=== PATIENT | male | born 1965 | race Caucasian/White ===

== ENCOUNTER 2023-10-12 13:54 | Inpatient (IN) | payer OTHER, MEDICAID ==
[~2023-10-12] VITALS: Ht 175.3 cm; Wt 92.5 kg
[2023-10-12 18:34] VITALS: BP 133/82; PULSE 100; RESP 20; TEMP 98.4; O2SAT 98
[2023-10-12] MEDS ORDERED: METO-289 PO (19:18)
[2023-10-12] MEDS ORDERED: METO25TA93 PO (19:18)
[2023-10-12] MEDS ORDERED: SEVE800T8 PO (19:18)
[2023-10-12] MEDS ORDERED: INSU100I70 SC (19:18)
[2023-10-12] MEDS ORDERED: FURO40TA4 PO (19:18)
[2023-10-12] MEDS ORDERED: ROPI0.5T26 PO (19:18)
[2023-10-12] MEDS ORDERED: NITR50CA52 PO (19:18)
[2023-10-12 20:00] VITALS: PULSE 110; PULSE 129; RESP 20; O2SAT 95
[2023-10-12 21:00] VITALS: BP 136/93; TEMP 97.9; O2SAT 94
[2023-10-12] MEDS ORDERED: ONDANSETRON HCL 4 MG/2 ML VIAL IV PRN (23:15)
[2023-10-12] MEDS ORDERED: ACETAMINOPHEN 325 MG TAB PO PRN (23:15)
[2023-10-12] MEDS ORDERED: MORPHINE SULFATE INJ 2 MG/ml SYRG IV PRN (23:15)
[2023-10-12] MEDS ORDERED: NITROGLYCERIN 0.4 MG SL TAB SL PRN (23:15)
[2023-10-12] MEDS ORDERED: DOCUSATE SOD 100 MG CAP PO PRN (23:15)
[2023-10-12] MEDS: MORPHINE SULFATE INJ 2 MG/ml SYRG IV PRN (23:35)
[2023-10-12 23:52] VITALS: PULSE 85; RESP 20; O2SAT 93
[2023-10-12] MEDS: IPRATROPIUM BROM 0.5 MG/2.5ML INH SOL NEB PRN (23:52)
[2023-10-12] MEDS: ALBUTEROL SULF 2.5 MG/0.5ML(0.5%) NEB SOLN NEB PRN (23:52)
[2023-10-13] VITALS (13 sets, daily range): BP systolic 115–150; BP diastolic 58–98; PULSE 82–110; RESP 16–22; TEMP 97.1–98.7; O2SAT 93–100
[2023-10-13 00:57] LABS: Basophils # (auto) 0.1 10 ^3/uL (0-0.2); Basophils % (auto) 0.7 % (0.0-2.0); Eosinophils # (auto) 0.2 10 ^3/uL (0-0.8); Eosinophils % (auto) 1.9 % (0.0-7.0); Hemoglobin 10.7 g/dL (13.5-17.5); Lymphocytes # (auto) 1.9 10 ^3/uL (0.4-5.4); Lymphocytes % (auto) 17.9 % (10.0-50.0); Mean Corpuscular Hgb Conc. 31.4 g/dL (32.0-36.0); Monocytes # (auto) 0.8 10 ^3/uL (0-1.3); Monocytes % (auto) 7.5 % (0.0-12.0); Neutrophils # (auto) 7.6 10 ^3/uL (1.6-8.6); Nucleated Red Blood Cells % 0.1 %; Red Blood Cells 3.82 10^6/uL (4.5-5.90); Red Cell Distribution Width 19.8 % (11.8-14.3); White Blood Cell 10.5 10^3/uL (4.4-10.8)
[2023-10-13 01:11] LABS: INR 1.26 (0.9-1.15); Partial Thromboplastin Time 29.6 SEC (24.5-34.5); Prothrombin Time 13.1 sec (9.3-11.8)
[2023-10-13 02:10] LABS: Chloride 103 mmol/L (98-107); Potassium 4.4 mmol/L (3.5-5.1); Sodium 136 mmol/L (136-145)
[2023-10-13 02:11] LABS: Anion Gap 14 (5-15); Calcium 7.7 mg/dL (8.7-10.4); Carbon Dioxide 19 mmol/L (20-30)
[2023-10-13 02:16] LABS: BUN/Creatinine Ratio 9.2 (10.0-20.0); Blood Urea Nitrogen 38 mg/dL (9-23); Glucose 307 mg/dL (74-106)
[2023-10-13] MEDS: HEPARIN SODIUM (PORCINE) 5000 UNITS/ML 1ML VIAL IV ONE ×2 (02:23→12:34)
[2023-10-13] MEDS: HEPARIN DRIP/D5W 100UNITS/ML 250 ML IV SCH ×2 (02:32→12:35)
[2023-10-13] MEDS: HYDROcodone-ACET 5/325MG TAB PO PRN (05:22)
[2023-10-13] MEDS: LORazepam 0.5 MG TAB PO PRN (05:23)
[2023-10-13 09:35] LABS: Basophils # (auto) 0.1 10 ^3/uL (0-0.2); Basophils % (auto) 0.7 % (0.0-2.0); Eosinophils # (auto) 0.2 10 ^3/uL (0-0.8); Eosinophils % (auto) 1.8 % (0.0-7.0); Hematocrit 34.9 % (41.0-53.0); Hemoglobin 11.2 g/dL (13.5-17.5); Lymphocytes # (auto) 2.6 10 ^3/uL (0.4-5.4); Lymphocytes % (auto) 26.8 % (10.0-50.0); Mean Corpuscular Hemoglobin 28.4 pg (28.0-32.0); Mean Corpuscular Volume 88.7 fL (80.0-100.0); Monocytes # (auto) 0.7 10 ^3/uL (0-1.3); Monocytes % (auto) 7.6 % (0.0-12.0); Neutrophils # (auto) 6.2 10 ^3/uL (1.6-8.6); Neutrophils % (auto) 63.1 % (37.0-80.0); Red Blood Cells 3.93 10^6/uL (4.5-5.90); Red Cell Distribution Width 19.6 % (11.8-14.3); White Blood Cell 9.8 10^3/uL (4.4-10.8)
[2023-10-13 09:49] LABS: Chloride 103 mmol/L (98-107); Potassium 4.4 mmol/L (3.5-5.1); Sodium 134 mmol/L (136-145)
[2023-10-13 09:50] LABS: Anion Gap 6 (5-15); Calcium 7.4 mg/dL (8.5-10.1); Carbon Dioxide 25 mmol/L (20-30)
[2023-10-13 09:55] LABS: BUN/Creatinine Ratio 11.3 (10.0-20.0); Blood Urea Nitrogen 47 mg/dL (9-23); Glucose 299 mg/dL (74-106)
[2023-10-13] MEDS: ASPirin 81 mg TAB PO SCH (10:01)
[2023-10-13 11:35] LABS: INR 1.19 (0.9-1.15); Partial Thromboplastin Time 32.2 SEC (24.5-34.5); Prothrombin Time 12.5 sec (9.3-11.8)
[2023-10-13] MEDS ORDERED: SODIUM CHL 0.9% 1000 ML BAG XX ONE (14:00)
[2023-10-13 19:54] LABS: INR 1.16 (0.9-1.15); Partial Thromboplastin Time 49.7 SEC (24.5-34.5); Prothrombin Time 12.2 sec (9.3-11.8)
[2023-10-13] MEDS: ATORVASTATIN 20 MG TAB PO SCH (22:35)
[2023-10-14] VITALS (11 sets, daily range): BP systolic 117–150; BP diastolic 87–100; PULSE 83–112; RESP 14–20; TEMP 97.5–98.9; O2SAT 96–100
[2023-10-14 03:29] LABS: INR 1.11 (0.9-1.15); Partial Thromboplastin Time 38.6 SEC (24.5-34.5); Prothrombin Time 11.7 sec (9.3-11.8)
[2023-10-14 19:35] LABS: Basophils # (auto) 0.1 10 ^3/uL (0-0.2); Basophils % (auto) 0.8 % (0.0-2.0); Eosinophils # (auto) 0.2 10 ^3/uL (0-0.8); Eosinophils % (auto) 2.1 % (0.0-7.0); Hematocrit 35.8 % (41.0-53.0); Hemoglobin 11.3 g/dL (13.5-17.5); Lymphocytes # (auto) 2.7 10 ^3/uL (0.4-5.4); Lymphocytes % (auto) 27.1 % (10.0-50.0); Mean Corpuscular Hemoglobin 28.7 pg (28.0-32.0); Mean Corpuscular Hgb Conc. 31.7 g/dL (32.0-36.0); Mean Corpuscular Volume 90.5 fL (80.0-100.0); Monocytes # (auto) 0.5 10 ^3/uL (0-1.3); Monocytes % (auto) 5.1 % (0.0-12.0); Neutrophils # (auto) 6.5 10 ^3/uL (1.6-8.6); Neutrophils % (auto) 64.9 % (37.0-80.0); Nucleated Red Blood Cells % 0.1 %; Red Blood Cells 3.96 10^6/uL (4.5-5.90)
[2023-10-14 19:36] LABS: Red Cell Distribution Width 20.5 % (11.8-14.3)
[2023-10-14 19:46] LABS: Chloride 99 mmol/L (98-107); Potassium 4.4 mmol/L (3.5-5.1); Sodium 132 mmol/L (136-145)
[2023-10-14 19:47] LABS: Anion Gap 6 (5-15); Carbon Dioxide 27 mmol/L (20-30)
[2023-10-14 19:48] LABS: Calcium 7.5 mg/dL (8.5-10.1)
[2023-10-14 19:52] LABS: Glucose 359 mg/dL (74-106)
[2023-10-14 19:53] LABS: BUN/Creatinine Ratio 10.3 (10.0-20.0); Blood Urea Nitrogen 43 mg/dL (9-23)
[2023-10-14 20:06] LABS: INR 1.08 (0.9-1.15); Partial Thromboplastin Time 36.5 SEC (24.5-34.5); Prothrombin Time 11.4 sec (9.3-11.8)
[2023-10-14] MEDS: HEPARIN DRIP/D5W 100UNITS/ML 250 ML IV SCH (21:14)
== END 2023-10-15 00:15 | disposition left against medical advice (07) | DRG 280 ==
LOC: TELE-CENTR 18:29
PROVIDERS: ADMIT Internal Medicine; ATTEND Internal Medicine
PROC: 5A1D70Z Performance of Urinary Filtration, Intermittent, Less than 6 Hours Per Day (ICD-10-PCS; principal; 2023-10-13)
DX: I21.4 Non-ST elevation (NSTEMI) myocardial infarction (principal); I50.23 Acute on chronic systolic (congestive) heart failure; N18.6 End stage renal disease; J96.01 Acute respiratory failure with hypoxia; I13.2 Hypertensive heart and chronic kidney disease with heart failure and with stage 5 chronic kidney disease, or end stage renal disease; E11.22 Type 2 diabetes mellitus with diabetic chronic kidney disease; E66.9 Obesity, unspecified; J44.9 Chronic obstructive pulmonary disease, unspecified; Z53.29 Procedure and treatment not carried out because of patient's decision for other reasons; Z99.2 Dependence on renal dialysis; Z82.0 Family history of epilepsy and other diseases of the nervous system; Z82.5 Family history of asthma and other chronic lower respiratory diseases; Z82.61 Family history of arthritis; Z87.891 Personal history of nicotine dependence; Z68.30 Body mass index [BMI] 30.0-30.9, adult
CPT/HCPCS: 36415; 80048; 84484; 85025; 85610; 85730; 90935; 93306; 94640; G0378

== ENCOUNTER 2023-11-07 08:48 | Inpatient (IN) | payer OTHER, MEDICAID ==
[~2023-11-07] VITALS: Ht 177.8 cm; Wt 92.5 kg
[~2023-11-07 08:48] MED LIST: CLIN150C18 PO; FURO40TA4 PO; INSU100I70 SC; METO-289 PO; METO25TA93 PO; NITR50CA52 PO; ROPI0.5T26 PO; SEVE800T8 PO
[2023-11-07 09:35] VITALS: PULSE 114; RESP 21; O2SAT 99
[2023-11-07 09:46] LABS: Basophils # (auto) 0.2 10 ^3/uL (0-0.2); Basophils % (auto) 1.2 % (0.0-2.0); Eosinophils # (auto) 0 10 ^3/uL (0-0.8); Eosinophils % (auto) 0.3 % (0.0-7.0); Hematocrit 43.6 % (41.0-53.0); Hemoglobin 13.8 g/dL (13.5-17.5); Lymphocytes # (auto) 2.9 10 ^3/uL (0.4-5.4); Lymphocytes % (auto) 23.8 % (10.0-50.0); Mean Corpuscular Hemoglobin 28.5 pg (28.0-32.0); Mean Corpuscular Hgb Conc. 31.6 g/dL (32.0-36.0); Mean Corpuscular Volume 89.9 fL (80.0-100.0); Monocytes # (auto) 0.7 10 ^3/uL (0-1.3); Monocytes % (auto) 5.8 % (0.0-12.0); Neutrophils # (auto) 8.4 10 ^3/uL (1.6-8.6); Neutrophils % (auto) 68.9 % (37.0-80.0); Nucleated Red Blood Cells % 0.2 %; Red Blood Cells 4.85 10^6/uL (4.5-5.90); Red Cell Distribution Width 20.5 % (11.8-14.3); White Blood Cell 12.1 10^3/uL (4.4-10.8)
[2023-11-07 09:55] LABS: Chloride 103 mmol/L (98-107); Sodium 134 mmol/L (136-145)
[2023-11-07 09:56] LABS: Anion Gap 15 (5-15); Carbon Dioxide 16 mmol/L (20-30)
[2023-11-07 09:57] LABS: Calcium 7.9 mg/dL (8.5-10.1)
[2023-11-07 10:01] LABS: BUN/Creatinine Ratio 13.3 (10.0-20.0); Blood Urea Nitrogen 71 mg/dL (9-23); Glucose 208 mg/dL (74-106)
[2023-11-07] MEDS: FUROSEMIDE 40 MG/4 ML VIAL IV ONE (10:45)
[2023-11-07 11:03] LABS: Potassium 5.8 mmol/L (3.5-5.1)
[2023-11-07] MEDS: SODIUM BICARB 8.4% 50Meq/50ml SYR INJ IV ONE (11:15)
[2023-11-07] MEDS: SODIUM ZIRCONIUM CYCL 10 GM PAK PO ONE ×2 (11:15→11:39)
[2023-11-07] MEDS: InsuLIN REG 1unit/0.01ml Soln (100units/ml) IV ONE ×2 (11:15→12:30)
[2023-11-07] MEDS: CALCIUM GLUC 1,000mg/50ml-NS 50 ML IV ONE ×2 (11:15→12:28)
[2023-11-07] MEDS: DEXTROSE (50%) 50ML SYRG IV ONE ×2 (11:15→11:25)
[2023-11-07] MEDS: SODIUM BICARB 8.4% 50Meq/50ml SYR Vial IV ONE (11:28)
[2023-11-07] MEDS: ALBUTEROL SULF 2.5 MG/0.5ML(0.5%) NEB SOLN NEB ONE (12:18)
[2023-11-07 12:30] VITALS: RESP 20; O2SAT 96
[2023-11-07] MEDS: SODIUM CHL 0.9% 1000 ML BAG XX ONE (12:45)
[2023-11-07] MEDS ORDERED: MORPHINE SULFATE INJ 2 MG/ml SYRG IV PRN (14:15)
[2023-11-07] MEDS ORDERED: ACETAMINOPHEN 325 MG TAB PO PRN (14:15)
[2023-11-07] MEDS ORDERED: NITROGLYCERIN 0.4 MG SL TAB SL PRN (14:15)
[2023-11-07] MEDS ORDERED: DEXTROSE (50%) 50ML SYRG IV PRN (14:15)
[2023-11-07] MEDS ORDERED: DOCUSATE SOD 100 MG CAP PO PRN (14:15)
[2023-11-07] MEDS: DOXYCYCLINE 100MG/250ML 250 ML IV SCH (15:13)
[2023-11-07] MEDS: ONDANSETRON HCL 4 MG/2 ML VIAL IV PRN (16:38)
[2023-11-07] MEDS: MORPHINE SULFATE INJ 2 MG/ml SYRG IV PRN (17:20)
[2023-11-07] MEDS: ACCU-CHEK COMFORT CURVE STRIP VI SCH (19:10)
[2023-11-07 19:22] VITALS: PULSE 105; RESP 22; O2SAT 98
[2023-11-07] MEDS: InsuLIN REG 1unit/0.01ml Soln (100units/ml) SC SCH ×2 (19:44→22:37)
[2023-11-07] MEDS: ASCORBIC ACID 500 MG TAB PO SCH (22:32)
[2023-11-08] VITALS (10 sets, daily range): BP systolic 119–140; BP diastolic 73–93; PULSE 61–125; RESP 14–20; TEMP 96.2–98.1; O2SAT 92–99
[2023-11-08] MEDS ORDERED: POM (00:04)
[2023-11-08] MEDS ORDERED: HYDR1TAB97 PO (00:04)
[2023-11-08] MEDS ORDERED: INSU1INJ19 SC (00:04)
[2023-11-08] MEDS: HYDROcodone-ACET 5/325MG TAB PO PRN (03:39)
[2023-11-08 10:24] LABS: Hematocrit 46.4 % (41.0-53.0); Hemoglobin 14.5 g/dL (13.5-17.5); Mean Corpuscular Hemoglobin 28.1 pg (28.0-32.0); Mean Corpuscular Hgb Conc. 31.3 g/dL (32.0-36.0); Mean Corpuscular Volume 89.9 fL (80.0-100.0); Red Blood Cells 5.16 10^6/uL (4.5-5.90); White Blood Cell 10.7 10^3/uL (4.4-10.8)
[2023-11-08] MEDS: ZINC SULFATE 220mg CAP or TAB PO SCH (10:30)
[2023-11-08 10:33] LABS: Red Cell Distribution Width 21.3 % (11.8-14.3)
[2023-11-08 10:35] LABS: Band Neutrophils % (manual) 0; Basophils % (manual) 0 (0.0-2.0); Blast Cells 0; Eosinophils % (manual) 0 (0-7); Metamyelocytes % 0; Myelocytes % 0; Promyelocytes % 0; Reactive Lymphocytes 0
[2023-11-08 10:40] LABS: Alanine Aminotransferase 139 U/L (7-40); Albumin 3.5 g/dL (3.2-4.8); Alkaline Phosphatase 136 U/L (46-116); Anion Gap 13 (5-15); Aspartate Aminotransferase 131 U/L (13-40); BUN/Creatinine Ratio 11.3 (10.0-20.0); Calcium 8.4 mg/dL (8.5-10.1); Carbon Dioxide 20 mmol/L (20-30); Chloride 102 mmol/L (98-107); Glucose 226 mg/dL (74-106); Potassium 5.1 mmol/L (3.5-5.1); Sodium 135 mmol/L (136-145)
[2023-11-08 10:41] LABS: Total Protein 6.8 g/dL (5.7-8.2)
[2023-11-08 10:53] LABS: Blood Urea Nitrogen 53 mg/dL (9-23)
[2023-11-08] MEDS ORDERED: SEVE800T10 PO (11:57)
[2023-11-08] MEDS ORDERED: ZOLP5TAB5 PO (11:57)
[2023-11-08 12:22] LABS: Lymphocytes % (manual) 29 (10.0-50.0); Monocytes % (manual) 6 (0-12); Platelet Estimate Decreased
[2023-11-08] MEDS: HEPARIN SODIUM (PORCINE) 5000 UNITS/ML 1ML VIAL SC SCH (21:48)
[2023-11-09 01:00] VITALS: BP 131/89; PULSE 90; RESP 16; O2SAT 94
[2023-11-09 03:19] LABS: Chloride 97 mmol/L (98-107); Potassium 4.2 mmol/L (3.5-5.1)
[2023-11-09 03:20] LABS: Calcium 7.4 mg/dL (8.7-10.4); Carbon Dioxide 18 mmol/L (20-30)
[2023-11-09 03:25] LABS: BUN/Creatinine Ratio 9.5 (10.0-20.0)
[2023-11-09 03:28] LABS: Anion Gap 10 (5-15); Sodium 125 mmol/L (136-145)
[2023-11-09 03:38] LABS: Blood Urea Nitrogen 38 mg/dL (9-23); Glucose 494 mg/dL (74-106)
[2023-11-09 05:00] VITALS: BP 128/93; PULSE 103; RESP 17; TEMP 98; O2SAT 97
[2023-11-09 07:30] VITALS: PULSE 114
[2023-11-09 09:00] VITALS: BP 133/88; PULSE 118; RESP 18; TEMP 97.4; O2SAT 98
[2023-11-09] MEDS: ASPirin 81 mg TAB PO SCH (10:33)
[2023-11-09 13:00] VITALS: BP 116/78; PULSE 62; RESP 16; TEMP 98; O2SAT 99
[2023-11-09] MEDS ORDERED: ASPI-325 PO (15:39)
[2023-11-09] MEDS ORDERED: DOXY-286 PO (15:39)
[2023-11-09] MEDS ORDERED: ATOR20TA50 PO (15:39)
[2023-11-09 17:00] VITALS: BP 121/67; PULSE 92; RESP 16; TEMP 97.4; O2SAT 95
[2023-11-09] MEDS ORDERED: ATORVASTATIN 20 MG TAB PO SCH (22:00)
[2023-11-09] MEDS ORDERED: INSULIN LANTUS (GLARGINE) 1 /0.01ml (100units/ml) SC SCH (22:00)
[2023-11-10] MEDS ORDERED: SODIUM CHL 0.9% 1000 ML BAG XX ONE (07:00)
[2023-11-10] MEDS ORDERED: EPOETIN ALFA-EPBX 10,000 UNIT/1ML VIAL SC ONE (21:00)
[2023-11-13 14:12] LABS: Hepatitis A Ab IgM Negative
[2023-11-13 14:13] LABS: Hepatitis B Core IgM Negative
[2023-11-13 17:24] LABS: Hepatitis C Antibody Positive (Negative)
[2023-11-14 03:38] LABS: Hepatitis B Surface Antigen Negative (Negative)
== END 2023-11-09 20:05 | disposition home or self-care (01) | DRG 640 ==
LOC: ER 08:48 → EDBD 08:48 → TELE 14:18 → TELE-WESTW 23:30
PROVIDERS: ADMIT Internal Medicine; ATTEND Internal Medicine
PROC: 5A1D70Z Performance of Urinary Filtration, Intermittent, Less than 6 Hours Per Day (ICD-10-PCS; principal; 2023-11-07)
PROC: 5A1D70Z Performance of Urinary Filtration, Intermittent, Less than 6 Hours Per Day (ICD-10-PCS; 2023-11-08)
DX: E87.70 Fluid overload, unspecified (principal); I50.33 Acute on chronic diastolic (congestive) heart failure; N18.6 End stage renal disease; J96.90 Respiratory failure, unspecified, unspecified whether with hypoxia or hypercapnia; L03.115 Cellulitis of right lower limb; I13.2 Hypertensive heart and chronic kidney disease with heart failure and with stage 5 chronic kidney disease, or end stage renal disease; L03.116 Cellulitis of left lower limb; I42.0 Dilated cardiomyopathy; E87.5 Hyperkalemia; E87.20 Acidosis, unspecified; E87.1 Hypo-osmolality and hyponatremia; D69.6 Thrombocytopenia, unspecified; I95.9 Hypotension, unspecified; I27.20 Pulmonary hypertension, unspecified; D64.9 Anemia, unspecified; E11.22 Type 2 diabetes mellitus with diabetic chronic kidney disease; Z99.2 Dependence on renal dialysis; Z91.158 Patient's noncompliance with renal dialysis for other reason; Z91.199 Patient's noncompliance with other medical treatment and regimen due to unspecified reason; Z82.5 Family history of asthma and other chronic lower respiratory diseases; Z82.0 Family history of epilepsy and other diseases of the nervous system
CPT/HCPCS: 36415; 71045; 80048; 80053; 80074; 82962; 83880; 84132; 84484; 85007; 85025; 85027; 87040; 87081; 90935; 93005; 93925; 93971; 94640; 96365; 96372; 96375; G0378; J1642; J1815; J2405; J3490